=== PATIENT | female | born 1970 | race Caucasian/White ===

== ENCOUNTER 2016-12-01 15:07 | Emergency (ER) | payer OTHER ==
[~2016-12-01] VITALS: Ht 167.6 cm; Wt 66.0 kg
[2016-12-01] MEDS ORDERED: FLEXERIL10 MG PO (16:21)
[2016-12-01] MEDS ORDERED: MOTRIN800 MG PO (16:21)
[2016-12-01 16:57] VITALS: BP 149/91
== END 2016-12-01 16:59 | disposition home or self-care (01) ==
LOC: EME 15:07
PROC: 3E0234Z Introduction of Serum, Toxoid and Vaccine into Muscle, Percutaneous Approach (ICD-10-PCS; principal; 2016-12-01)
DX: S80.12XA Contusion of left lower leg, initial encounter (principal); V43.53XA Car driver injured in collision with pick-up truck in traffic accident, initial encounter; Z23 Encounter for immunization
CPT/HCPCS: 73590; 99281; 99284

== ENCOUNTER 2016-12-28 17:25 | Emergency (ER) | payer OTHER ==
[~2016-12-28] VITALS: Ht 170.2 cm; Wt 63.9 kg
[~2016-12-28 17:25] MED LIST: FLEXERIL10 MG PO; MOTRIN800 MG PO
[2016-12-28 20:53] VITALS: BP 134/84
== END 2016-12-28 20:53 | disposition home or self-care (01) ==
LOC: EME 17:25
DX: S80.12XA Contusion of left lower leg, initial encounter (principal); V49.40XA Driver injured in collision with unspecified motor vehicles in traffic accident, initial encounter; R60.0 Localized edema
CPT/HCPCS: 93971; 99281; 99283